=== PATIENT | female | born 1955 | race Hispanic/Latino ===

== ENCOUNTER → 2022-03-08 | Outpatient (CLI) | payer OTHER ==
[~2022-03-08] MED LIST: ACET-2743 PO; ASPI-1197 PO; CITRACAL PO; ESCI-8 PO; LORA10TA7 PO; PRAVASTATIN PO; SUCR1TAB2 PO
== END | disposition home or self-care (01) ==
LOC: SHCH 08:05
PROVIDERS: ATTEND Internal Medicine Cardiovascular Disease
DX: I35.1 Nonrheumatic aortic (valve) insufficiency (principal); I87.2 Venous insufficiency (chronic) (peripheral); R06.02 Shortness of breath
CPT/HCPCS: 93306; 93970

== ENCOUNTER → 2022-04-12 | Outpatient (CLI) | payer OTHER ==
[~2022-04-12] MED LIST changes: +REGADENOSON 0.4 MG/5 ML PF SYG IVP SCH
== END | disposition home or self-care (01) ==
LOC: SHCH 08:18
PROVIDERS: ATTEND Internal Medicine Cardiovascular Disease
DX: I20.9 Angina pectoris, unspecified (principal); I10 Essential (primary) hypertension; R06.09 Other forms of dyspnea
CPT/HCPCS: 78452; 93017; 96374; A9500 ×2; J2785

== ENCOUNTER 2023-02-27 07:03 | Day surgery (SDC) | payer MEDICARE ==
[2023-02-20 10:18] LABS: EOSINOPHILS % (AUTO) 4.8 % (0.0-8.0); HEMATOCRIT 36.5 % (36-48); LYMPHOCYTES % (AUTO) 26.1 % (21.0-51.0); MEAN CORPUSCULAR HEMOGLOBIN 29.6 pg (27.0-33.0); MEAN CORPUSCULAR HGB CONC 32.6 g/dL (32.0-36.0); MEAN CORPUSCULAR VOLUME 90.8 fL (79-99); MONOCYTES % (AUTO) 6.9 % (3.0-13.0); PLATELET COUNT (AUTO) 326 K/uL (130-400); RED BLOOD CELL COUNT(AUTO) 4.02 MIL/uL (4.00-5.50); RED CELL DISTRIBUTION WIDTH 13.9 % (11.0-15.5); WHITE BLOOD COUNT (AUTO) 6.1 K/uL (4.8-10.8)
[2023-02-20 10:28] LABS: INR 0.93 (0.85-1.15); PROTHROMBIN TIME 10.1 SEC (9.6-11.6)
[2023-02-20 10:29] LABS: PARTIAL THROMBOPLASTIN TIME 30.1 SEC (26.3-35.5)
[2023-02-20 10:32] LABS: CREATININE 0.8 mg/dL (0.5-1.5); POTASSIUM 4.1 mmol/L (3.5-5.1)
[2023-02-20 10:47] VITALS: BP 124/61
[2023-02-22 06:45] VITALS: BP 133/66
[~2023-02-27] VITALS: Ht 162.6 cm; Wt 73.8 kg
[2023-02-27] VITALS (10 sets, daily range): BP systolic 127–148; BP diastolic 58–72
[~2023-02-27 07:03] MED LIST changes: +0.9%NACL 1000ML 1,000 ML IV ONE; -ACET-2743 PO; +AEC81 PO; -ASPI-1197 PO; -ESCI-8 PO; +ESCI20TA38 PO; +FENO48TA10 PO; +FEXO-235 PO; +LISI5TAB21 PO; -LORA10TA7 PO; +MELO10CA3 PO; +METF750T46 PO; +OMEP40CA21 PO; -PRAVASTATIN PO; -REGADENOSON 0.4 MG/5 ML PF SYG IVP SCH; +ROSU20TA31 PO; -SUCR1TAB2 PO; +VITAMIN D
[2023-02-27] MEDS ORDERED: 0.9% NACL 500ML IV.SOLN 0 ML IV ONE (07:17)
[2023-02-27] MEDS ORDERED: 0.9%NACL 1000ML 1,000 ML IV ONE (07:32)
[2023-02-27] MEDS ORDERED: HEPARIN 10,000 UNIT/10ML (1,000 UNIT/ML) VIAL ONE (08:17)
[2023-02-27] MEDS ORDERED: FENTANYL CITRATE PF 50 MCG/1 ML 2ML VIAL ONE ×2 (08:17→09:17)
[2023-02-27] MEDS ORDERED: IODIXANOL 320 MG/ML 100 ML VIAL ONE (08:17)
[2023-02-27] MEDS ORDERED: LIDOCAINE HCL 400MG/20ML VIAL ONE (08:17)
[2023-02-27] MEDS ORDERED: MIDAZOLAM HCL 1 MG/ML 2ML VIAL ONE ×2 (08:17→08:59)
[2023-02-27] MEDS ORDERED: CLOPIDOGREL 300MG TAB ONE (09:28)
[2023-02-27] MEDS ORDERED: ASPIRIN 81MG CHEW TAB ONE (09:28)
[2023-02-27] MEDS ORDERED: METOPROLOL TARTRATE 1 MG/ML 5ML VIAL IV PRN (10:00)
[2023-02-27] MEDS ORDERED: 0.9%NACL 1000ML 1,000 ML IV SCH (10:00)
[2023-02-27] MEDS ORDERED: DEXTROSE 50%-WATER 50 ML DISP.SYRIN IV PRN (10:00)
[2023-02-27] MEDS ORDERED: GLUCAGON 1MG KIT 1 MG ML IM PRN (10:00)
[2023-02-27] MEDS ORDERED: CLOP-31 PO (10:12)
[2023-02-27] MEDS ORDERED: INSULIN HUMULIN R 100 UNIT/ML 3ML SQ SCH (11:30)
[2023-02-27] MEDS ORDERED: ACETAMINOPHEN 500 MG TABLET ONE (12:43)
== END 2023-02-27 14:05 | disposition home or self-care (01) ==
LOC: DAH 07:03
PROVIDERS: ATTEND Internal Medicine Cardiovascular Disease
DX: I87.1 Compression of vein (principal); I87.2 Venous insufficiency (chronic) (peripheral); I73.9 Peripheral vascular disease, unspecified; I20.8 Other forms of angina pectoris; E78.5 Hyperlipidemia, unspecified; K21.9 Gastro-esophageal reflux disease without esophagitis; F32.A Depression, unspecified; M19.90 Unspecified osteoarthritis, unspecified site; Z79.01 Long term (current) use of anticoagulants; Z79.82 Long term (current) use of aspirin; Z79.899 Other long term (current) drug therapy; Z79.84 Long term (current) use of oral hypoglycemic drugs; Z98.890 Other specified postprocedural states; Z86.16 Personal history of COVID-19; Z90.49 Acquired absence of other specified parts of digestive tract; Z90.710 Acquired absence of both cervix and uterus; Z82.49 Family history of ischemic heart disease and other diseases of the circulatory system; Z83.3 Family history of diabetes mellitus; Z80.9 Family history of malignant neoplasm, unspecified
CPT/HCPCS: 80048; 85025; 85610; 85730; 36415; 37238; 37239; 36012; 37252; 37253 ×5; 75822; J7030 ×2; C1876 ×2; C1769 ×2; C1894 ×3; C1725; C1753; J3010 ×2; J3490; J1644 ×2; J2250 ×2; Q9967; A4215; A4222; A4221; A4663; A4216; A4606; A4223 ×3; A4520; A4554; 96360; 96361; 99156; 99157; J7040

== ENCOUNTER → 2024-02-17 | Outpatient (CLI) | payer MEDICARE ==
[~2024-02-17] MED LIST changes: -0.9%NACL 1000ML 1,000 ML IV ONE; +CLOP-31 PO; -ROSU20TA31 PO; +ROSU20TA73 PO
== END | disposition home or self-care (01) ==
LOC: SHCH 09:59
PROVIDERS: ATTEND Internal Medicine Cardiovascular Disease
DX: I87.2 Venous insufficiency (chronic) (peripheral) (principal); I87.1 Compression of vein; I73.9 Peripheral vascular disease, unspecified
CPT/HCPCS: 93925; 93970

== ENCOUNTER 2024-12-18 07:13 | Day surgery (SDC) | payer OTHER ==
[2024-12-16 09:05] VITALS: BP 151/67; PULSE 78; RESP 18; TEMP 97.5
[2024-12-16 09:13] LABS: BASOPHILS # (AUTO) 0.04 K/uL (0.00-0.20); BASOPHILS % (AUTO) 0.6 % (0.0-5.0); EOSINOPHILS # (AUTO) 0.28 K/uL (0.00-0.70); EOSINOPHILS % (AUTO) 4.3 % (0.0-8.0); HEMATOCRIT 33.7 % (36-48); IMMATURE GRANULOCYTE ABSOLUTE 0.04 K/uL (0-1); LYMPHOCYTES # (AUTO) 1.5 K/uL (1.0-4.8); LYMPHOCYTES % (AUTO) 23.7 % (21.0-51.0); MEAN CORPUSCULAR HEMOGLOBIN 27.4 pg (27.0-33.0); MEAN CORPUSCULAR VOLUME 85.5 fL (79-99); MONOCYTES # (AUTO) 0.4 K/uL (0.1-1.0); MONOCYTES % (AUTO) 6.3 % (3.0-13.0); NEUTROPHILS # (AUTO) 4.2 K/uL (1.8-7.7); NEUTROPHILS % (AUTO) 64.5 % (40.0-77.0); PLATELET COUNT (AUTO) 366 K/uL (130-400); RED BLOOD CELL COUNT(AUTO) 3.94 MIL/uL (4.00-5.50); RED CELL DISTRIBUTION WIDTH 15.3 % (11.0-15.5); WHITE BLOOD COUNT (AUTO) 6.5 K/uL (4.8-10.8)
[2024-12-16 09:14] LABS: CREATININE 0.6 mg/dL (0.5-1.0); POTASSIUM 3.8 mmol/L (3.5-5.1)
[2024-12-16 09:18] LABS: INR 0.96 (0.85-1.15); PROTHROMBIN TIME 10.8 SEC (9.6-11.6)
[2024-12-16 09:20] LABS: PARTIAL THROMBOPLASTIN TIME 28.5 SEC (26.3-35.5)
--- NOTE | 2024-12-16 09:59 | EKG ---
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
[~2024-12-18] VITALS: Ht 162.6 cm; Wt 76.8 kg
[2024-12-18] VITALS (11 sets, daily range): BP systolic 118–145; BP diastolic 61–71; PULSE 72–81; RESP 12–22; TEMP 97.5–98.2
[~2024-12-18 07:13] MED LIST changes: +ALEN70TA80 PO; +BETA1TAB18 PO; -CITRACAL PO; -CLOP-31 PO; +DOCU100T PO; +ERGO500093 PO; -FEXO-235 PO; +FLUT16H NASAL; -LISI5TAB21 PO; +LORA10TA7 PO; +LOSA25TA41 PO; +MULT-1250 PO; -ROSU20TA73 PO; +ROSU20TA98 PO; -VITAMIN D
[2024-12-18] MEDS: 0.9%NACL 1000ML 1,000 ML IV SCH (08:08)
[2024-12-18] MEDS ORDERED: LIDOCAINE HCL 400MG/20ML VIAL ONE (08:47)
[2024-12-18] MEDS ORDERED: HEParin-NS 1,000 UNIT/500 ML 500 ML IV ONE (08:47)
[2024-12-18] MEDS ORDERED: IODIXANOL 320 MG/ML 100 ML VIAL ONE (08:47)
[2024-12-18] MEDS ORDERED: HEParin 10,000 UNIT/10ML (1,000 UNIT/ML) VIAL ONE (08:47)
[2024-12-18] MEDS ORDERED: NITROGLYCERIN 50MG VIAL ONE (08:48)
[2024-12-18] MEDS ORDERED: FENTanyl CITRate PF 50 MCG/1 ML 2ML VIAL ONE (08:52)
[2024-12-18] MEDS ORDERED: MIDAZOLAM HCL 1 MG/ML 2ML VIAL ONE (08:52)
[2024-12-18] MEDS ORDERED: 0.9%NACL 1000ML 1,000 ML IV SCH (09:30)
[2024-12-18] MEDS ORDERED: DEXTROSE 50%-WATER 50 ML DISP.SYRIN IV PRN (09:30)
[2024-12-18] MEDS ORDERED: GLUCAGON 1MG KIT 1 MG ML IM PRN (09:30)
--- NOTE | 2024-12-18 09:32 | PRN ---
Procedure Note INDICATION FOR PROCEDURE: [] May-Thurner syndrome Iliac vein compression Prior iliac vein stents bilaterally PROCEDURE: [] Conscious sedation Right common femoral vein sheath placement 9 [place] Right common femoral venogram Intravascular ultrasound of bilateral common iliac external iliac and common femoral veins Vascade closure device for closure of venous access site right common femoral vein DATE OF PROCEDURE: December 18, 2024 [employer]BLE MACHINE OPERATOR: Bacilio Woodruff MD, F.A.C.C. PROCEDURE NOTE: [] Patient brought to catheterization suite prepped draped sterile fashion IV started if not already in place in both coronal is exposed for venous access. 2% lidocaine used for local anesthesia. Micro puncture kit used to gain access of vein. Nine [place] sheath placed in right common femoral vein. Venogram performed. 0.035 in J-wire was placed into the IVC and then intravascular ultrasound was performed of right common iliac external iliac and common femoral vein. Wire was then placed into left common femoral vein under fluoroscopic guidance. Intravascular ultrasound was done of this vessel was well. Findings were as described below. At end of case Vascade was used for closure venous access site no complications occurred. FINDINGS: [] Left common iliac external iliac vein stent noted to be patent with excellent stent apposition and no evidence of iliac vein compression or left common femoral vein right common femoral vein compression. Right common iliac and external iliac vein stent noted to be patent with excellent stent apposition. IMPRESSION: [] Patent bilateral iliac vein stents noted No evidence of iliac vein or common femoral vein compression PLAN: [] Search for nonvascular source of leg pain BACILIO WOODRUFF MD Dec 18, 2024 09:32
[2024-12-18] MEDS ORDERED: INSULIN humuLIN R 100 UNIT/ML 3ML SQ SCH (11:30)
--- NOTE | 2024-12-18 12:00 | NUR ---
activity/urinary assisted to standing position without complaining of dizziness. ambulated to bathroom with slow steady gait. pt voided qs and had one bm. assisted back to bed.
== END 2024-12-18 12:30 | disposition home or self-care (01) ==
LOC: DAH 07:13
PROVIDERS: ATTEND Internal Medicine Cardiovascular Disease
DX: I87.1 Compression of vein (principal); I87.2 Venous insufficiency (chronic) (peripheral); E78.5 Hyperlipidemia, unspecified; F32.A Depression, unspecified; M19.90 Unspecified osteoarthritis, unspecified site; K21.9 Gastro-esophageal reflux disease without esophagitis; J45.909 Unspecified asthma, uncomplicated; Z90.710 Acquired absence of both cervix and uterus; Z90.49 Acquired absence of other specified parts of digestive tract; Z79.01 Long term (current) use of anticoagulants; Z79.899 Other long term (current) drug therapy
CPT/HCPCS: 80048; 85025; 85610; 85730; 36415; 93005; 75820; 37252; 37253 ×5; 82948 ×2; 36005; C1769; C1894 ×2; C1760; C1753; J3010; J3490 ×2; J7030; J2250; J1644; Q9967; A4215; A4335; A4222; A4221; A4663; A4216; A4606; A4223 ×3; A4554; 96360; 96361; 99156; 99157